=== PATIENT | male | born 1985 | race Caucasian/White ===

== ENCOUNTER → 2016-08-14 | Outpatient (CLI) | payer MEDICAID | LOC: BMCIMAGING 16:54 | PROVIDERS: ATTEND Emergency Medicine | DX: S66.91 Strain of unspecified muscle, fascia and tendon at wrist and hand level (principal) ==

== ENCOUNTER 2016-09-17 17:42 | Emergency (ER) | payer MEDICAID ==
[2016-09-17 17:49] VITALS: TEMP 98.1
[2016-09-17] MEDS ORDERED: NS 1,000 ML IV ONE (17:59)
[2016-09-17] MEDS ORDERED: HYDROmorphONE/DILAUDID 1 MG/ML SYR IVP ONE ×2 (17:59→19:59)
--- NOTE | 2016-09-17 18:32 | EDPHY ---
H & P Stated Complaint: Abdo pain since 09/15/16. NO N/V but "cant eat". - Personal History Current Tetanus Diphtheria and Acellular Pertussis (TDAP): Yes - Medical/Surgical History Hx Asthma: No Hx Chronic Respiratory Disease: No Hx Diabetes: No Hx Cardiac Disease: No Hx Renal Disease: No Hx Cirrhosis: No Hx Alcoholism: No Hx HIV/AIDS: No Hx Splenectomy or Spleen Trauma: No Other PMH: IBS. Depression. - Social History Smoking Status: Never smoked Time Seen by Provider: 09/17/16 17:54 HPI/ROS: Chief complaint: Abdominal pain History of present illness: This is a 31-year-old male who presents to the emergency department for evaluation of abdominal pain. Patient reports the onset of symptoms over the last 2 days. Symptoms have been slowly improving. He initially describes diffuse pain although it is now more localized to the right side of the abdomen. He reports pain mostly in the right upper aspect of the abdomen as well as somewhat to the right lower aspect of the abdomen. He has had nausea and 1 episode of vomiting. Denies other associated signs or symptoms including no fevers, no diarrhea or constipation, no blood in the stools, no urinary symptoms. He has never had similar symptoms. Patient does state prior to the onset of symptoms he was out drinking heavier than usual because it was his birthday. Review of systems: A 10 point review of systems was obtained and other than described above was negative (Dominick Alex) - Physical Exam Exam: General Appearance: Alert, nontoxic . Eyes: Pupils equal and round no pallor or injection. ENT, Mouth: Mucous membranes moist. Respiratory: There are no retractions, lungs are clear to auscultation. Cardiovascular: Regular rate and rhythm. Gastrointestinal: Bowel sounds are normal. Abdomen is soft and nondistended. There is tenderness in the right upper and right lower abdomen including at McBurney's. No Aguirre sign. No peritoneal signs at this time. Neurological: Alert and oriented x4. Strength and sensation intact and symmetrical. Skin: Warm and dry, no rashes. Musculoskeletal: Neck is supple nontender. Extremities are symmetrical, full range of motion. Psychiatric: Patient is oriented X 3, there is no agitation. (Dominick Alex) Constitutional: Initial Vital Signs Temperature (C) 36.7 C 09/17/16 17:45 Heart Rate 118 H 09/17/16 17:45 Respiratory Rate 20 09/17/16 17:45 Blood Pressure 118/80 09/17/16 17:45 O2 Sat (%) 97 09/17/16 17:45 O2 Delivery Mode Room Air Allergies/Adverse Reactions: No Known Allergies Allergy (Unverified 09/17/16 17:50) Home Medications: Medication Instructions Recorded Omeprazole 09/17/16 Valium 09/17/16 Wellbutrin Sr 09/17/16 Medical Decision Making - Diagnostics Imaging: Discussed imaging studies w/ dump motorman Radiologist - Diagnostics Imaging Results: Imaging Impressions Abdomen Ultrasound 09/17/16 18:00 Impression: 1. Normal right upper quadrant ultrasound. 2. Indeterminate study for appendicitis as a normal nor an abnormal appendix is visualized. Results called and discussed with BEBA Trujillo at 09/17/2016 18:59. Abdomen CT 09/17/16 19:11 Impression: No CT findings for appendicitis. Inflammatory change inferior to the pancreatic head and adjacent duodenum which could represent pancreatitis or less likely duodenitis. Results called and discussed with BEBA Trujillo at 09/17/2016 19:55. ED Course/Re-evaluation: Patient is discussed with my secondary supervising physician Dr. Renea Love. Patient presents to the emergency department for abdominal pain. He is nontoxic. Ultimately I am concerned that patient developed abdominal pain secondary to his alcohol use prior to the onset of symptoms. He appears to have a resolving pancreatitis. He is symptomatically treated with improvement in symptoms. He is comfortable being discharged home. Home care is discussed including a clear liquid diet, pain management and following up with a primary care doctor for recheck. Strict return precautions are given. The patient voiced understanding and agreement with plan. (Dominick Alex) Differential Diagnosis: Included but not limited to gastritis, peptic ulcer disease, biliary tract disease, pancreatitis, colitis, appendicitis diverticulitis, urinary tract disease (Dominick Alxe) Other Provider: The patient was evaluated and managed by the Physician Media Arts Professor/ Nurse Practitioner. I discussed the patient's presentation and course with the midlevel provider with them and agree with the evaluation. My co-signature indicates that I have reviewed this chart and I agree with the findings and plan of care as documented. I am the secondary supervising physician. (Renea Love) - Data Points Laboratory Results: Laboratory Results 09/17/16 18:25 09/17/16 18:25 09/17/16 09/17/16 09/17/16 19:23 18:25 18:25 WBC 11.29 10^3/uL H 10^3/uL (3.80-9.50) RBC 4.76 10^6/uL 10^6/uL (4.40-6.38) Hgb 16.1 g/dL g/dL (13.7-17.5) Hct 45.3 % % (40.0-51.0) MCV 95.2 fL fL (81.5-99.8) MCH 33.8 pg pg (27.9-34.1) MCHC 35.5 g/dL g/dL (32.4-36.7) RDW 11.5 % % (11.5-15.2) Plt Count 290 10^3/uL 10^3/uL (150-400) MPV 9.7 fL fL (8.7-11.7) Neut % (Auto) 76.3 % H % (39.3-74.2) Lymph % (Auto) 12.3 % L % (15.0-45.0) [place] % (Auto) 8.7 % % (4.5-13.0) Eos % (Auto) 1.9 % % (0.6-7.6) Baso % (Auto) 0.4 % % (0.3-1.7) Nucleat RBC Rel Count 0.0 % % (0.0-0.2) Absolute Neuts (auto) 8.62 10^3/uL H 10^3/uL (1.70-6.50) Absolute Lymphs (auto) 1.39 10^3/uL 10^3/uL (1.00-3.00) Absolute Monos (auto) 0.98 10^3/uL H 10^3/uL (0.30-0.80) Absolute Eos (auto) 0.21 10^3/uL 10^3/uL (0.03-0.40) Absolute Basos (auto) 0.05 10^3/uL 10^3/uL (0.02-0.10) Absolute Nucleated RBC 0.00 10^3/uL 10^3/uL (0-0.01) Immature Gran % 0.4 % % (0.0-1.1) Immature Gran # 0.04 10^3/uL 10^3/uL (0.00-0.10) Sodium 141 mEq/L mEq/L (134-144) Potassium 4.2 mEq/L mEq/L (3.5-5.2) Chloride 100 mEq/L mEq/L (97-110) Carbon Dioxide 25 mEq/l mEq/l (22-31) Anion Gap 16 mEq/L mEq/L (8-16) BUN 12 mg/dL mg/dL (7-23) Creatinine 1.3 mg/dL mg/dL (0.7-1.3) Estimated GFR > 60 Glucose 118 mg/dL H mg/dL (70-100) Calcium 10.6 mg/dL H mg/dL (8.5-10.4) Total Bilirubin 2.0 mg/dL H mg/dL (0.1-1.4) Conjugated Bilirubin 0.7 mg/dL H mg/dL (0.0-0.5) Unconjugated Bilirubin 1.3 mg/dL H mg/dL (0.0-1.1) AST 104 IU/L H IU/L (17-59) ALT 55 IU/L IU/L (21-72) Alkaline Phosphatase 81 IU/L IU/L (38-126) Total Protein 8.3 g/dL H g/dL (6.3-8.2) Albumin 4.7 g/dL g/dL (3.5-5.0) Lipase 525.0 IU/L H IU/L (23-300) Urine Color JULIAN Urine Appearance CLEAR Urine pH 6.0 (5.0-7.5) Ur Specific [place] 1.012 (1.002-1.030) Urine Protein NEGATIVE (NEGATIVE) Urine Ketones NEGATIVE (NEGATIVE) Urine Blood 2+ H (NEGATIVE) Urine Nitrate NEGATIVE (NEGATIVE) Urine Bilirubin NEGATIVE (NEGATIVE) Urine Urobilinogen NEGATIVE EU EU (0.2-1.0) Ur Leukocyte Esterase NEGATIVE (NEGATIVE) Urine RBC 25-50 /hpf H /hpf (0-3) Urine WBC 3-5 /hpf H /hpf (0-3) Ur Epithelial Cells NONE SEEN /lpf /lpf (NONE-1+) Urine Bacteria TRACE /hpf H /hpf (NONE SEEN) Hyaline Casts 1-5 /lpf /lpf (0-1) Granular Casts 5-15 /lpf /lpf (0-1) Urine Mucus TRACE /lpf /lpf (NONE-1+) Urine Glucose NEGATIVE (NEGATIVE) Medications Given: Discontinued Medications Hydrocodone Bitart/Acetaminophen ([place] 5/325mg Prepack#6) 1 btl TAKEHOME EDNOW ONE Stop: 09/17/16 20:00 Last Admin: 09/17/16 20:12 Dose: 1 btl Hydromorphone HCl (Dilaudid) 0.5 mg IVP EDNOW ONE Stop: 09/17/16 18:00 Last Admin: 09/17/16 18:25 Dose: 0.5 mg Hydromorphone HCl (Dilaudid) 0.5 mg IVP EDNOW ONE Stop: 09/17/16 20:00 Last Admin: 09/17/16 20:09 Dose: 0.5 mg Sodium Chloride (Ns) 1,000 mls @ 0 mls/hr IV ONCE ONE; Wide Open PRN Reason: Protocol Stop: 09/17/16 18:00 Last Admin: 09/17/16 18:25 Dose: 1,000 mls Departure - Departure Disposition: Home, Routine, Self-Care Clinical Impression: Abdominal pain Qualifiers: Abdominal location: right upper quadrant Qualified Code(s): R10.11 - Right upper quadrant pain Condition: Good Instructions: Hydrocodone/Acetaminophen (By mouth), Pancreatitis (ED) Additional Instructions: Follow-up with the primary care doctor this week for recheck You have been prescribed [[place]] for pain. [[place]] contains Tylenol, do not take extra Tylenol/acetaminophen/Apap with it. It is sedating. Maintain a clear liquid diet until symptoms resolve If symptoms worsen or new symptoms develop return to the emergency room for recheck Referrals: Jeffery Martinez MD [Primary Care Provider] - As per Instructions Lavern Candelaria MD [Medical Doctor] - As per Instructions Izabel Donovan MD [[facility] [place] Primary Care Provider] - As per Instructions
[2016-09-17 18:35] LABS: % IMMATURE GRANULYOCYTES 0.4 % (0.0-1.1); ABSOLUTE IMMATURE GRANULOCYTES 0.04 10^3/uL (0.00-0.10); ADD DIFF? NO; ADD MORPH? NO; ADD SCAN? NO; ATYPICAL LYMPHOCYTE FLAG 10 (0-99); FRAGMENT RBC FLAG 0 (0-99); HEMATOCRIT 45.3 % (40.0-51.0); HEMOGLOBIN 16.1 g/dL (13.7-17.5); LEFT SHIFT FLG 10 (0-99); LIPEMIA HEMOLYSIS FLAG 90 (0-99); MEAN CELL HEMOGLOBIN 33.8 pg (27.9-34.1); MEAN CELL HEMOGLOBIN CONCENTR. 35.5 g/dL (32.4-36.7); MEAN CELL VOLUME 95.2 fL (81.5-99.8); MEAN PLATELET VOLUME 9.7 fL (8.7-11.7); PLATELET CLUMPS FLAG 20 (0-99); PLATELET COUNT 290 10^3/uL (150-400); RED BLOOD CELL COUNT 4.76 10^6/uL (4.40-6.38); RED CELL DISTRIBUTION WIDTH 11.5 % (11.5-15.2)
[2016-09-17 19:00] LABS: ALANINE AMINOTRANSFERASE 55 IU/L (21-72); ALBUMIN 4.7 g/dL (3.5-5.0); ALKALINE PHOSPHATASE 81 IU/L (38-126); ANION GAP 16 mEq/L (8-16); ASPARTATE AMINOTRANSFERASE 104 IU/L (17-59); BILIRUBIN-CONJUGATED 0.7 mg/dL (0.0-0.5); BILIRUBIN-UNCONJUGATED 1.3 mg/dL (0.0-1.1); CALCIUM 10.6 mg/dL (8.5-10.4); CARBON DIOXIDE 25 mEq/l (22-31); CHLORIDE 100 mEq/L (97-110); CREATININE 1.3 mg/dL (0.7-1.3); GLOMERULAR FILTRATION RATE > 60; GLUCOSE 118 mg/dL (70-100); POTASSIUM 4.2 mEq/L (3.5-5.2); SODIUM 141 mEq/L (134-144); TOTAL PROTEIN 8.3 g/dL (6.3-8.2)
[2016-09-17 19:07] VITALS: RESP 16
[2016-09-17] MEDS ORDERED: IOPAMIDOL (ISOVUE-300) 100 ML BTL ONE (19:14)
[2016-09-17 19:28] LABS: COLOR AMBER; LEUKOCYTE ESTERASE,URINE NEGATIVE (NEGATIVE); NITRITE,URINE NEGATIVE (NEGATIVE)
[2016-09-17] MEDS ORDERED: HYDROCOD/APAP 5/325 PREPACK#6 BTL TAKEHOME ONE (19:59)
[2016-09-17 20:08] LABS: BACTERIA TRACE /hpf (NONE SEEN); MUCUS TRACE /lpf (NONE-1+); RBC,URINE 25-50 /hpf (0-3)
[2016-09-17 20:34] VITALS: BP 140/72; PULSE 77; O2SAT 97
== END 2016-09-17 20:33 | disposition home or self-care (01) ==
DX: R10.11 Right upper quadrant pain (principal); E86.9 Volume depletion, unspecified
CPT/HCPCS: 96374; J1170; Q9967

== ENCOUNTER → 2017-09-22 | Outpatient (CLI) | payer MEDICAID ==
--- NOTE | 2017-09-22 14:04 | CPEEG ---
[f rep st] ELECTROENCEPHALOGRAM DATE OF STUDY: 09/22/2017 INTERPRETATION: This 4-hour video EEG recording is normal. There were no potentially epileptogenic abnormalities present during the awake or sleep recordings. The patient did not have any clinical events during the video EEG monitoring session. REPORT: This 4-hour video EEG contains 9-10 Hz alpha activity to the posterior head regions. The background activity was normal and symmetric. There was no abnormal activation at rest, during photic stimulation or hyperventilation. The patient became drowsy and fell into sustained sleep during the study. There was no abnormal activation during drowsiness, sleep, or during times of arousal. The patient did not have any clinical events during the video EEG monitoring session. /[id number]/MODL MTDD
== END ==
LOC: FCPNEURO 08:03
PROVIDERS: ATTEND Psychiatry & Neurology Neurology
DX: R56.9 Unspecified convulsions (principal)